=== PATIENT | male | born 1985 | race Caucasian/White ===

== ENCOUNTER 2020-02-28 13:13 | Emergency (ER) | payer BC, OTHER ==
--- NOTE | 2020-02-28 13:45 | ER Document Report ---
ED Medical Screen (RME) - General Chief Complaint: Bloody Stools Stated Complaint: BLOOD IN STOOL,ABDOMINAL PAIN Time Seen by Provider: 02/28/20 13:42 Primary Care Provider: CUBA BULL MD [Primary Care Provider] - Follow up as needed Mode of Arrival: Ambulatory Information source: Patient Notes: 34-year-old male presented ED for complaint of abdominal pain and bloody stools for about 5 days. He states he is not having any problems going to the bathroom is not having hard stools the stools are normal in shape size but he has blood in the toilet when he goes. Patient is alert oriented respirations regular nonlabored speaking in full sentences. We will get blood type and screen urine and stool sample and he will be seen by another provider. Active bowel sounds tenderness to palpation both lower quadrants of the abdomen. Abdomen is soft. I have greeted and performed a rapid initial assessment of this patient. A comprehensive ED assessment and evaluation of the patient, analysis of test results and completion of medical decision making process will be conducted by an additional ED providers. TRAVEL OUTSIDE OF THE [place] IN LAST 30 DAYS: No - Related Data Allergies/Adverse Reactions: meperidine HCl [From Demerol] Allergy (Mild, Verified 09/21/12 15:37) Past Medical History Pulmonary Medical History: Reports: Hx Asthma, Hx Bronchitis Neurological Medical History: Reports: Hx Migraine GI Medical History: Reports: Hx Gastroesophageal Reflux Disease Musculoskeltal Medical History: Reports Hx Arthritis, Reports Hx Musculoskeletal Deformity, Reports Hx Musculoskeletal Trauma Psychiatric Medical History: Reports: Hx Anxiety Traumatic Medical History: Reports: Hx Fractures - right wrist 6 days Past Surgical History: Reports: Hx Adenoidectomy, Hx Oral Surgery, Hx Orthopedic Surgery - right shoulder 6 years ago, Hx Tonsillectomy - Immunizations Immunizations up to date: Yes Hx Diphtheria, Pertussis, Tetanus Vaccination: Yes - 2014 Physical Exam - Vital signs Vitals: Temp Pulse Resp BP Pulse Ox 98.4 F 77 16 123/70 100 02/28/20 13:22 02/28/20 13:22 02/28/20 13:22 02/28/20 13:22 02/28/20 13:22 Course - Vital Signs Vital signs: Temp Pulse Resp BP Pulse Ox 98.6 F 70 16 126/82 H 100 02/28/20 17:26 02/28/20 17:26 02/28/20 17:26 02/28/20 17:26 02/28/20 17:26 - Laboratory Result Diagrams: 02/28/20 14:15 02/28/20 14:15 Laboratory results interpreted by me: 02/28/20 02/28/20 14:15 14:15 Seg Neutrophils % 41.3 L Potassium 5.6 H AST 16 L Doctor's Discharge - Discharge Clinical Impression: Blood in the stool Disposition: HOME, SELF-CARE Additional Instructions: Please begin course of Augmentin. Please have close follow-up with your primary care doctor, you may need to see GI in the future peer return to the emergency department for any concerning worsening symptoms. Prescriptions: Amoxicillin/Potassium Clav [Augmentin 875-125 Tablet] 1 tab PO BID 5 Days #10 tablet Referrals: CUBA BULL MD [Primary Care Provider] - Follow up as needed
[2020-02-28 15:00] LABS: ABSOLUTE EOSINOPHILS # (AUTO) 0.4 10^3/uL (0.0-0.6); ABSOLUTE LYMPHOCYTES (AUTO) 3.2 10^3/uL (0.5-4.7); ABSOLUTE MONOCYTES (AUTO) 0.7 10^3/uL (0.1-1.4); BASOPHILS % (AUTO) 0.4 % (0-2); HEMATOCRIT 45.1 % (37.9-51.0); HEMOGLOBIN 14.7 g/dL (13.5-17.0); LYMPHOCYTES % (AUTO) 42.7 % (13-45); MEAN CORPUSCULAR HEMOGLOBIN 28.3 pg (27.0-33.4); MEAN CORPUSCULAR HGB CONC 32.5 g/dL (32.0-36.0); MEAN CORPUSCULAR VOLUME 87 fl (80-97); MONOCYTES % (AUTO) 9.6 % (3-13); PLATELET COUNT 431 10^3/uL (150-450); RED BLOOD COUNT 5.19 10^6/uL (4.35-5.55); RED CELL DISTRIBUTION WIDTH 13.6 % (11.5-14.0); SEGMENTED NEUTROPHILS % (AUTO) 41.3 % (42-78); TOTAL CELLS COUNTED % (AUTO) 100 %; WHITE BLOOD COUNT 7.4 10^3/uL (4.0-10.5)
[2020-02-28 15:08] LABS: APPEARANCE,URINE CLEAR; BILIRUBIN,URINE NEGATIVE (NEGATIVE); COLOR,URINE YELLOW; GLUCOSE, URINE NEGATIVE (NEGATIVE); KETONES,URINE NEGATIVE (NEGATIVE); LEUKOCYTE ESTERASE,URINE NEGATIVE (NEGATIVE); NITRITE,URINE NEGATIVE (NEGATIVE); PROTEIN,URINE NEGATIVE (NEGATIVE); URINE SPECIFIC GRAVITY 1.012; UROBILINOGEN,URINE NEGATIVE mg/dL (<2.0)
[2020-02-28 15:22] LABS: ALBUMIN 4.5 g/dL (3.5-5.0); ALKALINE PHOSPHATASE 68 U/L (38-126); ANION GAP 9 (5-19); ASPARTATE AMINO TRANSFERASE 16 U/L (17-59); BILIRUBIN,DIRECT 0.1 mg/dL (0.0-0.4); BILIRUBIN,TOTAL 0.5 mg/dL (0.2-1.3); BLOOD UREA NITROGEN 11 mg/dL (7-20); CARBON DIOXIDE 30 mmol/L (22-30); CHLORIDE 101 mmol/L (98-107); GLUCOSE 92 mg/dL (75-110); POTASSIUM 5.6 mmol/L (3.6-5.0)
--- NOTE | 2020-02-28 15:46 | ER Document Report ---
ED General - General Chief Complaint: blood in stool Stated Complaint: BLOOD IN STOOL,ABDOMINAL PAIN Time Seen by Provider: 02/28/20 13:42 Primary Care Provider: CUBA BULL MD [Primary Care Provider] - Follow up as needed Mode of Arrival: Ambulatory TRAVEL OUTSIDE OF THE [place] IN LAST 30 DAYS: No - HPI Notes: 34-year-old male presents with blood in his stool. Has been occurring for the past 5 days. Patient states that for the first few days he would notice blood streaks mixed in with his stool, yesterday he had blood in the stool and then an episode of just blood in the toilet, he is also had some blood with wiping. He states that the bleeding was heavy yesterday. He has not had any bleeding today. He states he has not been straining to have bowel movements. He also has had a burning sensation in his lower abdomen, states it feels like as if someone has been taking a pie filler to his lower abdomen. No nausea or vomiting. Patient states that he had a similar episode to this that happened 2 years ago, he did not have any medical evaluation for then. He denies a personal or family history of inflammatory bowel disease. His mother at bedside states that she had a colonoscopy and had a polyp removed. Patient does take BC powder for chronic headache. Denies any new foods, recent travel or antibiotic use. - Related Data Allergies/Adverse Reactions: meperidine HCl [From Demerol] Allergy (Mild, Verified 09/21/12 15:37) Home Medications: Xanax Past Medical History - General Information source: Patient - Social History Smoking Status: Unknown if Ever Smoked Family History: Arthritis, CAD, CVA, DM, Hyperlipidemia, Hypertension, Malignancy Pulmonary Medical History: Reports: Hx Asthma, Hx Bronchitis Neurological Medical History: Reports: Hx Migraine GI Medical History: Reports: Hx Gastroesophageal Reflux Disease Musculoskeletal Medical History: Reports Hx Arthritis, Reports Hx Musculoskeletal Deformity, Reports Hx Musculoskeletal Trauma Psychiatric Medical History: Reports: Hx Anxiety Traumatic Medical History: Reports: Hx Fractures - right wrist 6 days Past Surgical History: Reports: Hx Adenoidectomy, Hx Oral Surgery, Hx Orthopedic Surgery - right shoulder 6 years ago, Hx Tonsillectomy - Immunizations Immunizations up to date: Yes Hx Diphtheria, Pertussis, Tetanus Vaccination: Yes - 2014 Review of Systems - Review of Systems Constitutional: denies: Fever EENT: No symptoms reported Cardiovascular: No symptoms reported Respiratory: No symptoms reported Gastrointestinal: See HPI Genitourinary: No symptoms reported Male Genitourinary: No symptoms reported Musculoskeletal: No symptoms reported Skin: No symptoms reported Hematologic/Lymphatic: No symptoms reported Neurological/Psychological: No symptoms reported Physical Exam - Vital signs Vitals: Temp Pulse Resp BP Pulse Ox 98.4 F 77 16 123/70 100 02/28/20 13:22 02/28/20 13:22 02/28/20 13:22 02/28/20 13:22 02/28/20 13:22 - General General appearance: Appears well, Alert In distress: None - HEENT Head: Normocephalic, Atraumatic Eyes: No: Scleral icterus Extraocular movements intact: Yes Pupils: PERRL - Respiratory Breath sounds: Normal - Cardiovascular Rhythm: Regular Heart sounds: Normal auscultation Normal capillary refill: Yes - Abdominal Distension: No distension Bowel sounds: Normal Tenderness: Nontender - Rectal Tenderness: No Stool: Heme positive. No: Bloody Hemorrhoids: None Prostate: No: Tender - Extremities General upper extremity: Normal ROM General lower extremity: Normal ROM - Neurological Neuro grossly intact: Yes Cognition: Normal Orientation: AAOx4 - Psychological Associated symptoms: Normal affect - Skin Skin Temperature: Warm Course - Re-evaluation Re-evalutation: 34-year-old male presents with blood in stool, mainly streaks of blood mixed in with stool per his description, has not occurred today. On exam he is well- appearing, hemodynamically stable, nontoxic. His abdomen is soft without focal area of tenderness. Brown stool which was guaiac positive, no hemorrhoid or obvious fissure, no rectal tenderness. Discussed with patient suspect he has colitis, diverticulitis possible as well. CT abdomen ordered to evaluate. Less likely infectious based on his denial of any foodborne concerns, a stool culture was ordered from triage, patient thinks he is unable to perform this. Additionally discussed with him to limit BC use as it can be irritating to gastric mucosa. Labs done through triage process, reviewed. No leukocytosis or left shift. H emoglobin within normal limits. Electrolytes okay. Creatinine normal limits. No elevation of LFTs or T bili. No UTI or hematuria. 02/28/20 16:53 CT abdomen read as overall no acute finding. Clinically patient has a colitis. I discussed with him a short course of Augmentin and need to have close follow with primary care doctor, potential need to see GI in the future. Return precautions given, patient stable at time of discharge. - Vital Signs Vital signs: Temp Pulse Resp BP Pulse Ox 98.6 F 70 16 126/82 H 100 02/28/20 17:26 02/28/20 17:26 02/28/20 17:26 02/28/20 17:26 02/28/20 17:26 - Laboratory Result Diagrams: 02/28/20 14:15 02/28/20 14:15 Laboratory results interpreted by me: 02/28/20 02/28/20 14:15 14:15 Seg Neutrophils % 41.3 L Potassium 5.6 H AST 16 L - Diagnostic Test Radiology reviewed: Image reviewed, Reports reviewed Discharge - Discharge Clinical Impression: Blood in the stool Disposition: HOME, SELF-CARE Additional Instructions: Please begin course of Augmentin. Please have close follow-up with your primary care doctor, you may need to see GI in the future peer return to the emergency department for any concerning worsening symptoms. Prescriptions: Amoxicillin/Potassium Clav [Augmentin 875-125 Tablet] 1 tab PO BID 5 Days #10 tablet Referrals: CUBA BULL MD [Primary Care Provider] - Follow up as needed
--- NOTE | 2020-02-28 16:48 | RADIOLOGY REPORT (SQ) ---
EXAM DESCRIPTION: CT ABD/PELVIS WITH IV ONLY IMAGES COMPLETED DATE/TIME: 02/28/2020 4:30 pm REASON FOR STUDY: blood in stool, abd pain COMPARISON: None. TECHNIQUE: CT scan of the abdomen and pelvis performed using helical scanning technique with dynamic intravenous contrast injection. No oral contrast. Images reviewed with lung, soft tissue, and bone windows. Reconstructed coronal and sagittal MPR images reviewed. Delayed images for evaluation of the urinary system also acquired. All images stored on PACS. All CT scanners at this facility use dose modulation, iterative reconstruction, and/or weight based d osing when appropriate to reduce radiation dose to as low as reasonably achievable (ALARA). [facility]: Dose Right [facility]: CareDose [facility]: Dose Right [facility]: Teradose 4D [facility]: CRV CONTRAST TYPE AND DOSE: contrast/concentration: Isovue 350.00 mmol/ml; Total Contrast Delivered: 98. 0 ml; Total Saline Delivered: 71.9 ml 350 CC Omnipaque 350- low osmolar. RENAL FUNCTION: None required. The patient is less than 50 years old. RADIATION DOSE: CT Rad equipment meets quality standard of care and radiation dose reduction techniq ues were employed. CTDIvol: 7.1 - 10.0 mGy. DLP: 950 mGy-cm.. LIMITATIONS: None. FINDINGS: LOWER CHEST: No significant findings. No nodules or infiltrates. LIVER: Normal size. No masses. No dilated ducts. SPLEEN: Normal size. No focal lesions. PANCREAS: No masses. No significant calcifications. No adjacent inflammation or peripancreatic fluid collections. Pancreatic duct not dilated. GALLBLADDER: No identified stones by CT criteria. No inflammatory changes to suggest cholecystitis. ADRENAL GLANDS: No significant masses or asymmetry. RIGHT KIDNEY AND URETER: No solid masses. No significant calcifications. No hydronephrosis or hyd roureter. LEFT KIDNEY AND URETER: No solid masses. No significant calcifications. No hydronephrosis or hydr oureter. AORTA AND VESSELS: No aneurysm. No dissection. Renal arteries, SMA, celiac without stenosis. RETROPERITONEUM: No retroperitoneal adenopathy, hemorrhage or masses. BOWEL AND PERITONEAL CAVITY: No masses or inflammatory changes. No free fluid or peritoneal masses. APPENDIX: Normal. PELVIS: No mass. No free fluid. Normal bladder. ABDOMINAL WALL: No masses. No hernias. BONES: No significant or acute findings. OTHER: No other significant finding. IMPRESSION: NO SIGNIFICANT OR ACUTE FINDING IN THE ABDOMEN OR PELVIS ON CT SCAN WITH IV CONTRAST. TECHNICAL DOCUMENTATION: JOB ID: [id number] Quality ID # [id number]: Final reports with documentation of one or more dose reduction techniques (e.g., Au tomated exposure control, adjustment of the mA and/or kV according to patient size, use of iterative reconstruction technique) 2010 [employer]- All Rights Reserved Reading location - IP/workstation name: [email or web address]
[2020-02-28 17:27] VITALS: BP 126/82
== END 2020-02-28 17:28 | disposition home or self-care (01) ==
LOC: ER 13:13
DX: K92.1 Melena (principal); R51.9 Headache, unspecified; R10.9 Unspecified abdominal pain
CPT/HCPCS: 36415; 74177; 80053; 81001; 85025; 86850; 86900; 86901; 99285